=== PATIENT | male | born 1980 | race Two or more races ===

== ENCOUNTER 2018-02-15 06:21 | Emergency (ER) | payer MEDICARE, MEDICAID ==
[~2018-02-15] VITALS: Ht 167.6 cm; Wt 97.5 kg
[2018-02-15] MEDS ORDERED: APTIOM200 MG PO (06:25)
[2018-02-15] MEDS ORDERED: LAMICTAL100 MG ORAL (06:25)
[2018-02-15 06:30] VITALS: BP 145/102
[2018-02-15 06:50] VITALS: BP 145/102
--- NOTE | 2018-02-15 07:31 | Emergency Room Report ---
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 Allergies: Coded Allergies: No Known Allergies (Unverified , 02/15/18) Patient History Past Medical History: see triage record Pertinent Family History: none Reviewed Nursing Documentation: PMH: Agreed; PSxH: Agreed Nursing Documentation-PMH Hx Cardiac Problems: No - brain surgery 2017 Hx Asthma: Yes Hx Seizures: Yes Review of Systems All Other Systems: negative except mentioned in HPI Physical Exam Vital Signs Date Time Temp Pulse Resp B/P (MAP) Pulse Ox O2 Delivery O2 Flow Rate FiO2 02/15/18 06:18 97.2 89 16 145/102 98 Room Air 97.2 Sp02 EP Interpretation: reviewed, normal General Appearance: well appearing, no apparent distress Head: normocephalic, atraumatic Eyes: bilateral eye PERRL, bilateral eye EOMI ENT: normal pharynx, no angioedema Neck: supple, thyroid normal Respiratory: lungs clear, normal breath sounds Cardiovascular #1: regular rate, rhythm Gastrointestinal: non tender, soft, no mass Musculoskeletal: other - Moves both upper martha it is equally, at times patient tilts his head to the left, at times tilting into the right, he reports that he has more comfort with this Neurologic: alert, oriented x3, responsive, other - Patient moves extremities without focal deficit Psychiatric: mood/affect normal Skin: no rash Lymphatic: no adenopathy Medical Decision Making Diagnostic Impression: Primary Impression: seizure disorder ER Course Patient presents with a history of seizure disorder At this time has not had any seizures recently patient also has had fairly extensive workup at 2 facilities just as recently as yesterday Patient remains hemodynamically stable Patient is on 2 different seizure medications and reports getting them at the hospital yesterday Patient otherwise does not show any acute pathology and is stable for continued close outpatient follow-up Last Vital Signs Date Time Temp Pulse Resp B/P (MAP) Pulse Ox O2 Delivery O2 Flow Rate FiO2 02/15/18 06:50 97.2 78 16 145/102 98 Room Air 97.2 Status: unchanged Disposition: HOME, SELF-CARE Condition: Stable Referrals: NOT CHOSEN IPA/MD,REFERRING (PCP) Patient Instructions: Seizure, Adult, [id number] Additional Instructions: Patient is provided with the discharge instructions notified to follow up with primary doctor in the next 2-3 days otherwise return to the er with any worsening symptoms. Please note that this report is being documented using [employer] technology. This can lead to erroneous entry secondary to incorrect interpretation by the dictating instrument. Mary Calderon DO Feb 15, 2018 07:31
== END 2018-02-15 06:50 | disposition home or self-care (01) ==
LOC: EDBD 06:21 → EMR 06:41
DX: G40.802 Other epilepsy, not intractable, without status epilepticus (principal); J45.909 Unspecified asthma, uncomplicated
CPT/HCPCS: 99283